=== PATIENT | male | born 1970 | race Two or more races ===

== ENCOUNTER 2018-09-14 02:24 | Emergency (ER) | payer SELFPAY ==
[~2018-09-14] VITALS: Ht 175.3 cm; Wt 127.0 kg
[2018-09-14] MEDS ORDERED: HYDROmorphone HCL 2 MG/ML VL IM ONE (03:45)
[2018-09-14] MEDS ORDERED: DexAMETHasone SOD PHOS 10MG/1ML VIAL INJ IM ONE (03:45)
[2018-09-14] MEDS ORDERED: ONDANSETRON ODT 4 MG TAB PO ONE (03:45)
[2018-09-14] MEDS ORDERED: KETOROLAC TROMETH 60MG/2ML VIAL IM ONE (03:45)
[2018-09-14 06:09] VITALS: BP 110/67
== END 2018-09-14 06:15 | disposition home or self-care (01) ==
LOC: EDBD 02:24 → ER 02:29
DX: M54.32 Sciatica, left side (principal); E78.5 Hyperlipidemia, unspecified; I10 Essential (primary) hypertension
CPT/HCPCS: 96372; 99283; J1100; J1170; J1885; Q0162